=== PATIENT | female | born 1980 | race African-American/Black ===

== ENCOUNTER 2016-08-05 19:39 | Inpatient (IN) ==
[2016-08-05] MEDS ORDERED: ONDANSETRON ODT 4 MG TABLET PO STA (20:49)
[2016-08-05] MEDS ORDERED: SODIUM CHLORIDE 0.9% 1,000 ML IV STA (20:49)
--- NOTE | 2016-08-05 21:12 | EKG Report ---
Stationary ECG Study [facility] ER Test Date: 08/05/2016 9:11:37 PM Pat Name: EVERARDO MERINO Department: Room: 222 Gender: F Chief Ophthalmic Technician: CLARISA : 1980 Requested by: Humera Manzanares Order Number: [id number] Reading MD: SINGH ZHU Intervals [place] Rate: 127 P: 68 CO: 133 QRS: 36 QRSD: 78 T: 50 QT: 303 QTc: 378 Interpretive Statements SINUS TACHYCARDIA ABNORMAL RHYTHM ECG Electronically Signed On 08-07-16 16:42:35 CDT by SINGH ZHU [email or web address]
[2016-08-05 21:28] LABS: Apearance,Urine CLOUDY (Clear); Bacteria,Urine Moderate /HPF (Few); Bilirubin,Urine Negative (Negative); Blood, Urine Large mg/dL (Negative); Glucose,Urine (UA) >=500 mg/dL (Negative); Ketones,Urine 20 mg/dL (Negative); Nitrite,Urine Negative (Negative); Protein,Urine 100 MG/DL; RBC,Urine 35 /HPF (0-4); Squamous Epithelial Cell,Urine Few /HPF (0-10); Urine Color Yellow (Yellow); WBC,Urine 886 /HPF (0-6)
[2016-08-05 21:47] LABS: Basophils % 0.2 % (0.0-0.8); Hemoglobin 13.2 GM/DL (12.0-16.0); Immature Granulocytes % 1.1 %; Immature Granulocytes Absolute 0.18 #; Lymphocytes # 1.6 10*3/uL (1.4-4.0); Lymphocytes % 9.8 % (21.3-54.2); Mean Corpuscular HGB Conc 33.8 GM/DL (32-36); Mean Corpuscular Hemoglobin 29 PG (27-34); Mean Corpuscular Volume 85.2 FL (87-102); Mean Platelet Volume 9.3 FL (9.6-12.0); Monocytes # 2.1 10*3/uL (0.11-0.8); Monocytes % 12.6 % (1.7-12.7); Neutrophils # 12.6 10*3/uL (1.4-7.4); Neutrophils % 76.3 % (38.7-73.9); Platelet Count 352 T/CUMM (130-400); Red Blood Count 4.58 MC/CUMM (3.8-5.5); Red Cell Distribution Width 14.9 % (9.3-17.3); White Blood Count 16.5 T/CUMM (4-12)
[2016-08-05 22:09] LABS: Lactic Acid 2.1 MMOL/L (0.4-2.0)
[2016-08-05 22:16] LABS: Albumin 3.5 G/DL (3.4-5.0); Bilirubin,Total 1.9 MG/DL (0.2-1.0); Calcium 8.5 MG/DL (8.5-10.1); Free T4 (Free Thyroxine) 1.41 NG/DL (0.76-1.46); Potassium 3.4 MMOL/L (3.5-5.1); Thyroid Stimulating Hormone 5.04 uIU/ml (0.358-3.74); Total Protein 7.7 G/DL (6.4-8.3)
[2016-08-06] MEDS ORDERED: LORazepam 2 MG/1 ML VIAL ONE (00:53)
[2016-08-06] MEDS ORDERED: LORazepam 2 MG/1 ML VIAL IM STA (00:57)
[2016-08-06] MEDS ORDERED: ONDANSETRON ODT 4 MG TABLET PO ONE (01:09)
[2016-08-06] MEDS ORDERED: cefTRIAXone 1,000 MG in SODIUM CHLORIDE 0.9% 100 ML IV STA (01:12)
--- NOTE | 2016-08-06 01:16 | Emergency Department Note ---
Tacos Rader Brittany, am scribing for, and in the presence of, Humera Manzanares DO 21:12. Leighton Rader Whitney, DO, personally performed the services described in this documentation, ascribed by Manjula Balderrama in my presence, and it is both accurate and complete . Arrival - Arrival Chief Complaint: Nausea/Vomiting/Diarrhea Stated Complaint: chest pain/hot/body pain ED Nursing Triage Note: Patient complains of fever, nausea, vomiting and weakness that has been going on for the past two days. States that she has been unable to eat and has been having pain all over. Denies prior treatment. Hx of HTN, asthma, hypothyroidism. Mode of Arrival: Ambulatory Limitations: No Limitations Source: Patient, RN Notes Reviewed Time Seen by Provider: 08/05/16 20:30 - History of Present Illness HPI Narrative: Patient is a 36 y/o black female presenting to the ED by EMS with multiple complaints. Patient reports that over the past two days she has had some abdominal pain along with some associated episodes of nausea and vomiting. She describes abdominal pain as occurring mostly in the LUQ area. Patient notes having some fever at a high of 105 that was broken after being given some ice by her grandfather. Patient states that she hasn't eaten in 2-3 days due to GI symptoms. She reports having some chest pain yesterday that resolved after a dose of aspirin, but onset again today and has since been persistent. She states that she has had some left hip pain radiating down the LLE, and reports this pain is chronic secondary to history of sciatic nerve pain. She has had some shortness of breath as well. Patient reports past medical history of HTN, Asthma, and Thyroid Problems with which she states she is compliant with her medications. Patient denies use of ETOH or Tobacco. She has no other complaint/ pain. Onset (ago): day(s) (2) Consistency: constant Severity: moderate Severity scale (1-10): 6 Quality: aching Date of Last Menstrual Period: 07/06/2016 Allergies/Adverse Reactions: Allergies Allergy/AdvReac Type Severity Reaction Status Date / Time No Known Allergies Allergy Verified 04/27/15 08:59 Home Medications: Home Medications Medication Instructions Recorded Confirmed Type Aspirin Tab 325 mg PO DAILY 08/05/16 08/05/16 History Atenolol/Chlorthalidone 1 each PO DAILY 08/05/16 08/05/16 History [Atenolol-Chlorthal 50-25 Tb] Cetirizine HCl [Cetirizine Tab] 10 mg PO DAILY 08/05/16 08/05/16 History Chromium/Herbal Complex No.238 1 each PO DAILY 08/05/16 08/05/16 History [Green Tea Caplet] Diclofenac Sodium Tab [Voltaren] 50 mg PO Q8H PRN 08/05/16 08/05/16 History Esomeprazole Magnesium [Nexium] 40 mg PO DAILY 08/05/16 08/05/16 History Levothyroxine Tab [Synthroid Tab] 175 mcg PO DAILY 08/05/16 08/05/16 History Naproxen Sodium [Aleve] 220 mg PO DAILY 08/05/16 08/05/16 History Potassium Chloride 8 meq PO BID 08/05/16 08/05/16 History predniSONE TAB [PredniSONE] 20 mg PO DAILY 08/05/16 08/05/16 History Review of System - Review of System 12 point system: reviewed and no additional remarkable complaints except as stated - Review of System Constitutional: Present: fever. Absent: chills Eyes: Absent: vision change Head/Ears/Nose/Throat: Absent: nasal drainage, sore throat Respiratory: Present: respiratory distress Cardiovascular: Present: chest pain Gastrointestinal: Present: as per HPI, abdominal pain, nausea, vomiting. Absent : diarrhea Genitourinary female: Absent: dysuria, frequency, urgency Musculoskeletal: Absent: arm pain, back pain, leg pain, neck pain Skin: Absent: rash Neurological: Present: headache Psychiatric: Absent: anxiety, depression Hematological/Lymphatic: Absent: easy bleeding, easy bruising Medical,Surgical,& Family Hx - Medical History Cardio: History of: Hypertension Endocrine: History of: Thyroid Disorder Respiratory: History of: Asthma - Social History Smoking Status: Never smoker Frequency of Alcohol Use: None Type of Drug Use: None Exam Vital Signs: Vital Signs Temperature 98.9 F 08/05/16 20:03 Pulse Rate 121 H 08/05/16 23:00 Respiratory Rate 16 08/05/16 23:00 Blood Pressure 94/59 08/05/16 23:00 O2 Sat by Pulse Oximetry 99 08/05/16 23:00 - General General appearance: alert, in no apparent distress - Head Head exam: Present: atraumatic, normocephalic, normal inspection - Eye Eye exam: Present: normal appearance, PERRL, EOMI - ENT ENT exam: Present: normal exam, normal oropharynx - Neck Neck exam: Present: normal inspection, full ROM, trachea midline - Chest Chest inspection: Present: normal inspection, symmetric chest wall rise - Respiratory Respiratory exam: Present: normal lung sounds bilaterally. Absent: rales, rhonchi, wheezes - Cardiovascular Cardiovascular exam: Present: normal rhythm, tachycardia, normal heart sounds. Absent: regular rate - Abdominal Exam Abdominal exam: Present: soft, tenderness (LUQ tenderness to palpation), normal bowel sounds, incision (scar consistent with prior Cholecystectomy). Absent: distention - Extremities Exam Extremities exam: Present: normal inspection - Back Exam Back exam: Present: normal inspection - Neurological Exam Neurological exam: Present: alert, oriented X3, CN II-XII intact. Absent: motor sensory deficit - Psychiatric Psychiatric exam: Present: normal affect, normal mood - Skin Skin exam: Present: warm, dry, intact, normal color Course Course Narrative: Patient is morbidly obese. She is also high anxiety. Required 2 of Ativan. Has had 4 different nurses attempted IV access. Appears patient is very fluid down and often has IV access problems. We were able to finally get an access after threat of central line. Per lab work it looks like patient has UTI likely complicated by acute pyelonephritis with nausea vomiting and some other systemic symptoms. Patient is acutely dehydrated requiring fluids. Will give some Rocephin to cover her infection. And also some pain medication 2 of morphine as promised. Will admit to hospitalist service for IV antibiotics Results - Labs CBC & BMP: 08/05/16 21:44 08/05/16 21:44 Lab Results: I have reviewed the patients labs Labs: Laboratory Tests 08/05/16 21:11 Urine Color Yellow Urine Appearance Cloudy Urine pH 6.0 Ur Specific [place] 1.010 Urine Protein 100 Urine Glucose (UA) >=500 Urine Ketones 20 Urine Blood Large Urine Nitrate Negative Urine Bilirubin Negative Urine Urobilinogen 4.0 H Urine Leukocytes Large H Urine RBC 35 Urine WBC 886 Urine WBC Clumps Many Ur Squamous Epith Cells Few Urine Bacteria Moderate Laboratory Tests 08/05/16 21:44 WBC 16.5 H RBC 4.58 Hgb 13.2 Hct 39.0 MCV 85.2 L Plt Count 352 MPV 9.3 L Neut % (Auto) 76.3 H Lymph % (Auto) 9.8 L Neut # (Auto) 12.6 H [place] # (Auto) 2.1 H Laboratory Tests 08/05/16 21:44 Lactic Acid 2.1 H Laboratory Tests 08/05/16 21:44 Sodium 136 Potassium 3.4 L Chloride 98 Carbon Dioxide 23 Anion Gap 18.4 H BUN 14 Creatinine 2.00 H Glucose 112 H Lactic Acid 2.1 H Total Bilirubin 1.90 H Globulin 4.2 H Albumin/Globulin Ratio 0.8 L TSH 3rd Generation 5.040 H Disposition Clinical Impression: Pyelonephritis, Dehydration, Nausea & vomiting Case discussed with: patient Disposition: Still a Patient Condition: Stable
[2016-08-06] MEDS ORDERED: MORPHINE 2 MG/1 ML SYRINGE IV STA (01:17)
[2016-08-06] MEDS ORDERED: cefTRIAXone 1,000 MG VIAL ONE (01:19)
[2016-08-06] MEDS ORDERED: SODIUM CHLORIDE 0.9% 100 ML IV ONE (01:19)
[2016-08-06] MEDS ORDERED: MORPHINE 2 MG/1 ML SYRINGE ONE (01:19)
--- NOTE | 2016-08-06 01:56 | Hospitalist History & Physical ---
Assessment and Plan (1) Sepsis Status: Acute Assessment and plan: Acute Pyelonephritis with Sepsis - IVF - IV Rocephin and levaquin - urine culture pending - Will monitor Current Visit: Yes (2) Acute renal failure Status: Acute Assessment and plan: ANGEL - IVF - holding BP meds and NSaids - will monitor Current Visit: Yes (3) Pyelonephritis Status: Acute Assessment and plan: see above Current Visit: Yes History of Present Illness Chief complaint: Nausea and vomiting History of present illness: Ms. Camacho is a 36 year old female with a history of hypertension, asthma, and hypothyroidism that presented to the ER for nausea and vomiting for 2-3 days. Patient also reports that she has had a fever up to 105 that corrected with antipyretics. Patient reports moderate right upper quadrant/flank pain, chronic left sciatic pain, and headache. Patient denies dysuria but she was reports malodorous urine. All other symptoms denied. Of note, patient has had a cholecystectomy. In the ER, patient was found to have acute pyelonephritis with sepsis (fever, leukocytosis, tachycardia) and acute renal failure. Home Medications Medication Instructions Recorded Confirmed Type Aspirin Tab 325 mg PO DAILY 08/05/16 08/05/16 History Atenolol/Chlorthalidone 1 each PO DAILY 08/05/16 08/05/16 History [Atenolol-Chlorthal 50-25 Tb] Cetirizine HCl [Cetirizine Tab] 10 mg PO DAILY 08/05/16 08/05/16 History Chromium/Herbal Complex No.238 1 each PO DAILY 08/05/16 08/05/16 History [Green Tea Caplet] Diclofenac Sodium Tab [Voltaren] 50 mg PO Q8H PRN 08/05/16 08/05/16 History Esomeprazole Magnesium [Nexium] 40 mg PO DAILY 08/05/16 08/05/16 History Levothyroxine Tab [Synthroid Tab] 175 mcg PO DAILY 08/05/16 08/05/16 History Naproxen Sodium [Aleve] 220 mg PO DAILY 08/05/16 08/05/16 History Potassium Chloride 8 meq PO BID 08/05/16 08/05/16 History predniSONE TAB [PredniSONE] 20 mg PO DAILY 08/05/16 08/05/16 History Allergies Allergy/AdvReac Type Severity Reaction Status Date / Time No Known Allergies Allergy Verified 04/27/15 08:59 Medical,Surgical,& Family Hx - Medical History Cardio: History of: Hypertension Endocrine: History of: Thyroid Disorder Respiratory: History of: Asthma - Social History Smoking Status: Never smoker Frequency of Alcohol Use: None Type of Drug Use: None 12 point system: reviewed and no additional remarkable complaints except as stated Exam - Constitutional Vitals: Period Temp Pulse Resp BP Sys/Ramírez Pulse Ox Last 24 Hr 98.9 F-98.9 F 113-127 12-20 94-109/59-87 96-100 General appearance: no acute distress, morbidly obese - Head Head exam: Present: normal inspection - Eye Eye exam: Present: EOMI - Neck Neck exam: Present: normal inspection - Respiratory Respiratory exam: Present: clear to auscultation bilaterally - Cardiovascular Cardiovascular exam: Present: tachycardia. Absent: diastolic murmur, systolic murmur - GI/Abdominal GI/Abdominal exam: Present: normal bowel sounds, tenderness (RUQ/flank) - Extremities Exam Extremities exam: Absent: edema - Back Exam Back exam: Present: CVA tenderness (R) - Neurological Exam Neurological exam: Present: alert, oriented X3 - Psychiatric Psychiatric exam: Present: normal affect, normal mood - Skin Skin exam: Present: normal color, warm, dry Results - Labs CBC & BMP: 08/05/16 21:44 08/05/16 21:44
[2016-08-06] MEDS ORDERED: ONDANSETRON 4 MG/2 ML VIAL IV PRN (02:37)
[2016-08-06] MEDS ORDERED: ACETAMINOPHEN 325 MG TABLET PO PRN (02:37)
[2016-08-06] MEDS ORDERED: PROMETHAZINE 25 MG TABLET PO PRN (02:37)
[2016-08-06] MEDS ORDERED: PROMETHAZINE 25 MG/1 ML VIAL IM PRN (02:37)
[2016-08-06] MEDS ORDERED: LACTULOSE 20 GM/30 ML UDCUP PO PRN (02:37)
[2016-08-06] MEDS: SODIUM CHLOR 0.9% KCL 40 MEQ 40 MEQ/1,000 ML BAG IV SCH ×4 (03:10→20:00)
[2016-08-06] MEDS: MORPHINE 2 MG/1 ML SYRINGE IV PRN (03:10)
[2016-08-06] MEDS: LEVOFLOXACIN INJ 500 MG in PREMIX 1 EACH IV SCH (03:10)
[2016-08-06] MEDS: LEVOTHYROXINE 175 MCG TABLET PO SCH (06:21)
--- NOTE | 2016-08-06 08:12 | XRay Report ---
XR chest 1V Indication: Chest pain Comparison: None available Findings: The heart and mediastinum are stable in size and configuration. The pulmonary vascularity is slightly increased with bilateral increased interstitial lung density. No other lung infiltrates, effusions, pneumothorax or other abnormality is demonstrated. Impression: Findings suggest mild cardiac decompensation. PROCEDURE INTERPRETED AT [facility] DEPARTMENT OF RADIOLOGY Final Report Signed by: Dr. Johnny Lunsford
[2016-08-06] MEDS: ENOXAPARIN 40 MG/0.4 ML SYRINGE SUBCUT SCH (08:47)
[2016-08-06] MEDS: CETIRIZINE 10 MG TABLET PO SCH (08:48)
[2016-08-06] MEDS: ASPIRIN 325 MG TABLET PO SCH (08:48)
[2016-08-06] MEDS: predniSONE 20 MG TABLET PO SCH (08:48)
[2016-08-06] MEDS: PANTOPRAZOLE 40 MG TABLET PO SCH (08:48)
[2016-08-06] MEDS ORDERED: PNEUMOCOCCAL VACCINE (23 VALENT) 0.5 ML VIAL IM ONE (09:00)
--- NOTE | 2016-08-06 10:52 | Hospitalist Progress Note ---
Assessment and Plan - Time spent with patient Time spent with patient: Greater than 30 minutes (1) Sepsis Status: Acute Assessment and plan: Appears to be improving will obtain labs for tomorrow. Current Visit: Yes (2) Pyelonephritis Status: Acute Assessment and plan: Continue current management. Current Visit: Yes Hospitalist: Subjective Interval history: Patient was admitted overnight for management of sepsis and pyelonephritis. Fever is coming down and the patient states she feels much better. Nausea and vomiting is improving. Exam - Constitutional Vitals: Period Temp Pulse Resp BP Sys/Ramírez Pulse Ox Last 24 Hr 98.5 F-100.8 F 101-122 16-20 100-128/64-78 95-100 General appearance: no acute distress, morbidly obese - Head Head exam: Present: normocephalic, atraumatic - Eye Eye exam: Present: EOMI Pupils: Present: MARIE - ENT ENT exam: Present: normal exam - Neck Neck exam: Present: normal inspection - Respiratory Respiratory exam: Present: clear to auscultation bilaterally. Absent: rhonchi, wheezes - Cardiovascular Cardiovascular exam: Present: regular rate and rhythm. Absent: gallop, rubs, systolic murmur - GI/Abdominal GI/Abdominal exam: Present: normal bowel sounds, soft. Absent: distended, firm , guarding, tenderness, rebound - Extremities Exam Extremities exam: Present: normal inspection. Absent: calf tenderness, edema Results - Labs CBC & BMP: 08/05/16 21:44 08/05/16 21:44 Lab Results: I have reviewed the past 24 hour labs
[2016-08-06] MEDS: cefTRIAXone 1,000 MG in SODIUM CHLORIDE 0.9% 100 ML IV SCH (20:54)
[2016-08-06] MEDS ORDERED: cefTRIAXone 1,000 MG VIAL IV SCH (21:00)
[2016-08-07] MEDS: LEVOFLOXACIN INJ 500 MG in PREMIX 1 EACH IV SCH (03:13)
[2016-08-07] MEDS: SODIUM CHLOR 0.9% KCL 40 MEQ 40 MEQ/1,000 ML BAG IV SCH ×3 (05:44→20:42)
[2016-08-07 06:08] LABS: Basophils % 0.2 % (0.0-0.8); Eosinophils % 0.2 % (0.00-10.9); Hematocrit 32.7 VOL% (35.7-47.0); Immature Granulocytes % 1.4 %; Immature Granulocytes Absolute 0.17 #; Lymphocytes # 1.6 10*3/uL (1.4-4.0); Lymphocytes % 12.7 % (21.3-54.2); Mean Corpuscular Hemoglobin 29 PG (27-34); Mean Corpuscular Volume 86.5 FL (87-102); Mean Platelet Volume 10.2 FL (9.6-12.0); Monocytes # 1.7 10*3/uL (0.11-0.8); Monocytes % 13.9 % (1.7-12.7); Neutrophils # 8.9 10*3/uL (1.4-7.4); Neutrophils % 71.6 % (38.7-73.9); Platelet Count 299 T/CUMM (130-400); Red Blood Count 3.78 MC/CUMM (3.8-5.5); Red Cell Distribution Width 14.9 % (9.3-17.3); White Blood Count 12.4 T/CUMM (4-12)
[2016-08-07 06:10] LABS: Hemoglobin 10.8 GM/DL (12.0-16.0)
[2016-08-07 06:19] LABS: Hypochromasia 1+; Lymphocytes 12 % (20-55); Ovalocytes Slight; Platelet Estimate Adequate; Segmented Neutrophils 72 % (50-85); Total Cells Counted 100
[2016-08-07] MEDS: LEVOTHYROXINE 175 MCG TABLET PO SCH (06:42)
[2016-08-07 07:52] LABS: Albumin 2.7 G/DL (3.4-5.0); Bilirubin,Total 0.4 MG/DL (0.2-1.0); Calcium 7.9 MG/DL (8.5-10.1); Osmolality,Calculated 276.7 MOS/KG (273-304); Potassium 4.1 MMOL/L (3.5-5.1); Total Protein 6.7 G/DL (6.4-8.3)
[2016-08-07] MEDS: MORPHINE 2 MG/1 ML SYRINGE IV PRN (09:31)
[2016-08-07] MEDS: PANTOPRAZOLE 40 MG TABLET PO SCH (09:33)
[2016-08-07] MEDS: ASPIRIN 325 MG TABLET PO SCH (09:33)
[2016-08-07] MEDS: predniSONE 20 MG TABLET PO SCH (09:33)
[2016-08-07] MEDS: ENOXAPARIN 40 MG/0.4 ML SYRINGE SUBCUT SCH (09:33)
[2016-08-07] MEDS: CETIRIZINE 10 MG TABLET PO SCH (09:33)
--- NOTE | 2016-08-07 11:07 | Hospitalist Progress Note ---
Assessment and Plan - Time spent with patient Time spent with patient: Greater than 30 minutes (1) Sepsis Status: Acute Assessment and plan: Appears to be improving will obtain labs for tomorrow. Current Visit: Yes (2) Pyelonephritis Status: Acute Assessment and plan: Continue current management. Current Visit: Yes Hospitalist: Subjective Interval history: No complaints or overnight events. Exam - Constitutional Vitals: Period Temp Pulse Resp BP Sys/Ramírez Pulse Ox Last 24 Hr 97.2 F-98.4 F 84-90 18-20 90-138/50-92 96-100 General appearance: no acute distress, morbidly obese - Head Head exam: Present: normocephalic, atraumatic - Eye Eye exam: Present: EOMI Pupils: Present: MARIE - ENT ENT exam: Present: normal exam - Neck Neck exam: Present: normal inspection - Respiratory Respiratory exam: Present: clear to auscultation bilaterally. Absent: rhonchi, wheezes - Cardiovascular Cardiovascular exam: Present: regular rate and rhythm. Absent: gallop, rubs, systolic murmur - GI/Abdominal GI/Abdominal exam: Present: normal bowel sounds, soft. Absent: distended, firm , guarding, tenderness, rebound - Extremities Exam Extremities exam: Present: normal inspection. Absent: calf tenderness, edema Results - Labs CBC & BMP: 08/07/16 05:07 08/07/16 06:18 Lab Results: I have reviewed the past 24 hour labs
[2016-08-07] MEDS: cefTRIAXone 1,000 MG in SODIUM CHLORIDE 0.9% 100 ML IV SCH (20:41)
[2016-08-08] MEDS: SODIUM CHLOR 0.9% KCL 40 MEQ 40 MEQ/1,000 ML BAG IV SCH ×2 (05:40→13:19)
[2016-08-08 05:46] LABS: Basophils % 0.4 % (0.0-0.8); Eosinophils % 0.3 % (0.00-10.9); Hematocrit 33.5 VOL% (35.7-47.0); Immature Granulocytes % 1.4 %; Immature Granulocytes Absolute 0.11 #; Lymphocytes # 2.5 10*3/uL (1.4-4.0); Mean Corpuscular HGB Conc 32.8 GM/DL (32-36); Mean Corpuscular Hemoglobin 29 PG (27-34); Mean Corpuscular Volume 87.7 FL (87-102); Mean Platelet Volume 9.7 FL (9.6-12.0); Monocytes # 0.7 10*3/uL (0.11-0.8); Monocytes % 8.1 % (1.7-12.7); Neutrophils # 4.7 10*3/uL (1.4-7.4); Neutrophils % 58.8 % (38.7-73.9); Platelet Count 324 T/CUMM (130-400); Red Blood Count 3.82 MC/CUMM (3.8-5.5); Red Cell Distribution Width 15.4 % (9.3-17.3)
[2016-08-08 06:17] LABS: Calcium 7.8 MG/DL (8.5-10.1); Osmolality,Calculated 283.3 MOS/KG (273-304); Potassium 4.5 MMOL/L (3.5-5.1)
[2016-08-08] MEDS: LEVOTHYROXINE 175 MCG TABLET PO SCH (06:21)
[2016-08-08] MEDS: LEVOFLOXACIN INJ 500 MG in PREMIX 1 EACH IV SCH (08:26)
[2016-08-08] MEDS: ENOXAPARIN 40 MG/0.4 ML SYRINGE SUBCUT SCH (08:27)
[2016-08-08] MEDS: PANTOPRAZOLE 40 MG TABLET PO SCH (08:27)
[2016-08-08] MEDS: predniSONE 20 MG TABLET PO SCH (08:27)
[2016-08-08] MEDS: ASPIRIN 325 MG TABLET PO SCH (08:27)
[2016-08-08] MEDS: CETIRIZINE 10 MG TABLET PO SCH (08:27)
[2016-08-08 12:12] VITALS: BP 94/45
--- NOTE | 2016-08-08 12:21 | Discharge Summary ---
Hospital Course - Hospital Course Hospital Course: Ms. Camacho was admitted for management of urinary tract infection. She was initiated on IV antibiotics. She was found to have costal vertebral angle tenderness on examination and this was felt to be secondary to possible pyelonephritis. Patient's urinalysis and culture returned E. coli sensitive to IV antibiotics. She will be discharged with 2 weeks of antibiotics for completion of treatment. By discharge she had met maximum benefit of hospitalization. She had no fever and white blood cell count returned to normal. I spent 36 minutes coordinating this discharge. - Time spent with patient Time with patient DS: Greater than 30 minutes Diagnosis - Discharge Diagnosis (1) Sepsis Status: Acute (2) Pyelonephritis Status: Acute Discharge Plan - Discharge Data Disposition: Disch To Home/Self Care Condition at Discharge: Stable Discharge Diet: advance to your usual diet Activity: resume usual activities as tolerated Hygiene: no restrictions - Discharge Medications New Levofloxacin Tab [Levaquin Tab] 500 mg PO DAILY #14 tablet Continue predniSONE TAB [PredniSONE] 20 mg PO DAILY Cetirizine HCl [Cetirizine Tab] 10 mg PO DAILY Aspirin Tab 325 mg PO DAILY Diclofenac Sodium Tab [Voltaren] 50 mg PO Q8H PRN PRN Reason: Pain Potassium Chloride 8 meq PO BID Esomeprazole Magnesium [Nexium] 40 mg PO DAILY Atenolol/Chlorthalidone [Atenolol-Chlorthalidone 50-25] 1 each PO DAILY Chromium/Herbal Complex No.238 [Green Tea Caplet] 1 each PO DAILY Naproxen Sodium [Aleve] 220 mg PO DAILY Levothyroxine Tab [Synthroid Tab] 175 mcg PO DAILY - Follow Up or Referral - Forms/Instructions Exam - Constitutional Vitals: Period Temp Pulse Resp BP Sys/Ramírez Pulse Ox Last 24 Hr 97 F-98.0 F 79-85 16-22 91-108/46-60 96-100 General appearance: no acute distress, morbidly obese - Head Head exam: Present: normal inspection, normocephalic, atraumatic - Eye Eye exam: Present: EOMI Pupils: Present: MARIE - ENT ENT exam: Present: normal exam - Neck Neck exam: Present: normal inspection - Respiratory Respiratory exam: Present: clear to auscultation bilaterally. Absent: accessory muscle use, prolonged expiratory phase, wheezes - Cardiovascular Cardiovascular exam: Present: regular rate and rhythm. Absent: bradycardia, irregular rhythm, systolic murmur - GI/Abdominal GI/Abdominal exam: Present: normal bowel sounds. Absent: ascites, distended, hypoactive bowel sounds, tenderness - Extremities Exam Extremities exam: Present: normal inspection Discharge Results Labs on day of discharge: Labs from last 24 hours 08/08/16 08/08/16 05:21 05:21 WBC 8.0 D RBC 3.82 Hgb 11.0 L Hct 33.5 L MCV 87.7 MCH 29 MCHC 32.8 RDW 15.4 Plt Count 324 MPV 9.7 Neut % (Auto) 58.8 Lymph % (Auto) 31.0 [place] % (Auto) 8.1 Eos % (Auto) 0.3 Baso % (Auto) 0.4 Neut # (Auto) 4.7 Lymph # (Auto) 2.5 [place] # (Auto) 0.7 Eos # (Auto) 0.0 Baso # (Auto) 0.0 Immature Gran % 1.4 Nucleated RBC % 0.0 Immature Gran # 0.11 Nucleated RBCs # 0.00 Sodium 141 Potassium 4.5 Chloride 109 H Carbon Dioxide 24 Anion Gap 12.5 BUN 17 Creatinine 1.30 H GFR Calculation 85 BUN/Creatinine Ratio 13.00 Glucose 112 H Calculated Osmolality 283.3 Calcium 7.8 L DS: Provider Date of admission: 08/06/16 01:40 Primary care physician: . No PCP Attending physician on admission: Kevin Peña Discharging clinician: Colleen Asencio MD Expected date of discharge: 08/08/16
== END 2016-08-08 14:22 | disposition home or self-care (01) | DRG 872 ==
LOC: N.ED 19:39 → N.EDINP 08-06 01:40 → SUATTDRO 08-06 01:40 → N.2E 08-06 02:25
PROVIDERS: ADMIT Family Medicine; ATTEND Internal Medicine